=== PATIENT | male | born 1980 | race Two or more races ===

== ENCOUNTER 2017-05-07 15:03 | Emergency (ER) | payer SELFPAY ==
[~2017-05-07] VITALS: Ht 185.4 cm; Wt 86.2 kg
[2017-05-07 16:16] VITALS: BP 113/91
== END 2017-05-07 16:17 | disposition home or self-care (01) ==
LOC: ER 15:05
DX: N52.9 Male erectile dysfunction, unspecified (principal)
CPT/HCPCS: A4606; Z7610